=== PATIENT | female | born 1985 | race Caucasian/White ===

== ENCOUNTER → 2019-10-20 14:06 | Outpatient (CLI) | payer SELFPAY ==
[2018-11-22 10:56] VITALS: BMI 32.5
[2019-10-20 15:52] LABS: T3 Uptake 31 % (30-39); T4 Free Direct 0.96 ng/dL (0.76-1.46); T7 / Free Thyroxin Index 2.8 (1.4-4.5); Thyroid Stim Hormone (TSH) 1.18 uIU/mL (0.358-3.74)
[2019-10-22 13:40] LABS: Thyroid Peroxidase AB 122 IU/mL (0-34)
== END ==
PROVIDERS: Family Provider Family Medicine; PCP Family Medicine; Referring Provider Dermatology; Visit Provider Dermatology
DX: L63.8 Other alopecia areata (principal); L21.8 Other seborrheic dermatitis
CPT/HCPCS: 36415; 84436; 84439; 84443; 84479; 86376

== ENCOUNTER → 2019-10-28 14:51 | Outpatient (CLI) | payer SELFPAY ==
[2018-11-22 10:56] VITALS: BMI 32.5
[2019-11-05 09:12] LABS: Anti-Thyroglobulin AB 4.3 IU/mL (0.0-0.9); Thyroglobulin RIA 8.5 ng/mL (.)
== END ==
PROVIDERS: PCP Family Medicine; Referring Provider Family Medicine; Visit Provider Family Medicine
DX: E06.3 Autoimmune thyroiditis (principal)
CPT/HCPCS: 36415; 84432; 86800

== ENCOUNTER → 2019-11-11 13:55 | Outpatient (CLI) | payer SELFPAY ==
[2018-11-22 10:56] VITALS: BMI 32.5
--- NOTE | 2019-11-11 13:59 | US_ITS ---
STUDY: THYROID ULTRASOUND REASON FOR EXAM: Female, 34 years old. THYROMEGALY TECHNIQUE: Ultrasound evaluation of the thyroid was performed with real-time and static bonilla-scale imaging. COMPARISON: None. FINDINGS: RIGHT LOBE: The right lobe of the thyroid gland measures 5.2 x 2.0 x 1.8 cm. There is a homogeneous echotexture. There are no demonstrated solid, cystic or complex lesions. LEFT LOBE: The left lobe of the thyroid gland measures 5.2 x 2.0 x 1.9 cm. There is a homogeneous echotexture. There are no demonstrated solid, cystic or complex lesions. ISTHMUS: The isthmus measures 2.0 mm. US/Thyroid IMPRESSION: Enlarged thyroid gland. Electronically Signed: Tiffanie Erickson MD at 16:39 EST Tel , Service support ,
== END ==
PROVIDERS: PCP Family Medicine; Referring Provider Family Medicine; Visit Provider Family Medicine
DX: E01.0 Iodine-deficiency related diffuse (endemic) goiter (principal)
CPT/HCPCS: 76536

== ENCOUNTER → 2020-02-25 14:26 | Outpatient (CLI) | payer SELFPAY ==
[2018-11-22 10:56] VITALS: BMI 32.5
[2020-02-25 17:54] LABS: T4 Free Direct 0.84 ng/dL (0.76-1.46)
[2020-03-07 00:17] LABS: Thyroglobulin RIA 11 ng/mL (.); Thyroid Peroxidase AB 132 IU/mL (0-34)
== END ==
PROVIDERS: PCP Family Medicine; Referring Provider Family Medicine; Visit Provider Family Medicine
DX: E06.3 Autoimmune thyroiditis (principal)
CPT/HCPCS: 36415; 84432; 84439; 84443; 86376; 86800

== ENCOUNTER → 2020-08-29 14:50 | Outpatient (CLI) | payer SELFPAY ==
[2018-11-22 10:56] VITALS: BMI 32.5
[2020-08-29 18:14] LABS: T4 Free Direct 0.95 ng/dL (0.76-1.46); Thyroid Stim Hormone (TSH) 1.03 uIU/mL (0.358-3.74)
== END ==
PROVIDERS: PCP Family Medicine; Referring Provider Family Medicine; Visit Provider Family Medicine
DX: E06.3 Autoimmune thyroiditis (principal)
CPT/HCPCS: 36415; 84439; 84443

== ENCOUNTER → 2021-07-03 07:01 | Outpatient (CLI) | payer SELFPAY ==
[2021-07-03 10:26] LABS: T4 Free Direct 0.96 ng/dL (0.76-1.46); Thyroid Stim Hormone (TSH) 1.89 uIU/mL (0.358-3.74)
== END ==
PROVIDERS: PCP Family Medicine; Referring Provider Family Medicine; Visit Provider Family Medicine
DX: E06.3 Autoimmune thyroiditis (principal)
CPT/HCPCS: 36415; 84439; 84443

== ENCOUNTER → 2022-03-20 | Outpatient (CLI) | payer SELFPAY ==
[2022-03-25 19:38] LABS: HPV APTIMA, High Risk Negative (Negative)
== END | disposition home or self-care (01) ==
LOC: LABSPEC 16:29
PROVIDERS: PCP Family Medicine; Visit Provider Obstetrics & Gynecology
DX: Z12.4 Encounter for screening for malignant neoplasm of cervix (principal)
CPT/HCPCS: 87624; 88175; G0145

== ENCOUNTER → 2023-11-06 | Outpatient (CLI) | payer SELFPAY ==
--- OUTSIDE RECORDS SUMMARY | 2023-11-06 08:41 | XMS RPT_ITS | CCD ---
Author Name Unknown Address [address] [facility] [address] [place] [id number] Organization [facility] Care Team Providers Care Broach Operator Name Role Phone NEYONIT ROGER, KRISTI Unavailable Unavail able LIA SHEPPARD Unavailable Unavailable YUMIKO, GILBERT L Unavailable Unavailable NEYMARKUST ROGER, KRISTI Unavailable Unavail able YUMIKO, GILBERT L Unavailable Unavailable YUMIKO, GILBERT L Unavailable Unavailable NEYHART DURAN, KRISTI Unavailable Unavail able NEYHART DURAN, KRISTI Unavailable Unavail able Problems Active Problems Problem Classification Problem Date Documented Da te Episodic/Chronic Unclassified (1 source) 39 weeks gestation of ; Translations: [39 weeks gestation of ] Onset: 06-14-2017 Past or Other Problems Problem Classification Problem Date Documented Da te Episodic/Chronic Normal and/or delivery (1 source) Encounter for supervision of other normal , third trimester; Translations: [Encounter for supervision of other normal , third trimester] Onset: 06-14-2017 Episodic Results Test Name Value Interpretation Reference Range Facil ity Encounters Encounter Date Encounter Type Care Provider Facility Start: 08-05-2017 End: 08-06-2017 Ambulatory KRISTI SUZETTE DURAN [facility] Start: 06-21-2017 End: 06-21-2017 Ambulatory KRISTI SUZETTE DURAN [facility] Start: 06-14-2017 End: 06-17-2017 Ambulatory GILBERT CALDERON [facility] Start: 06-05-2017 End: 06-06-2017 Ambulatory GILBERT CALDERON [facility] Start: 05-31-2017 End: 05-31-2017 Ambulatory KRISTIELADIA DURAN [facility] Start: 05-15-2017 End: 05-17-2017 Ambulatory GILBERT CALDERON [facility] Start: 04-30-2017 End: 05-01-2017 Ambulatory LIA SHEPPARD [facility] Start: 04-15-2017 End: 04-15-2017 Ambulatory KRISTIIGOR GONZALEZNTOSH [facility] Summary Purpose Family History No Family History Records Found Advance Directives No Advanced Directives Records Found Additional Source Comments INFORMATION SOURCE (unrecogn ized section and content) FOR RECORDS PERTAINING TO PATIENTS WHO ARE OR HAVE BEEN ENROLLED IN A CHEMICAL DEPENDENCY/SUBSTANCEABUSE PROGRAM, SOME INFORMATION MAY BE OMITTED. This clinical summary was aggregated from multiple sources. Caution should be exercised in using it in the provision of clinical care. This summary normalizes information from multiple sources, and as a consequence, information in this document may materially change the coding, format and clinical context of patient data. In addition, data may be omitted in some cases. CLINICAL DECISIONS SHOULD BE BASED ON THE PRIMARY CLINICAL RECORDS. [employer] [facility]. provides no warranty or guarantee of the accuracy or completeness of information in this document.
[2023-11-06 10:32] LABS: Cholesterol 168 mg/dL (200); Free T3 2.2 pg/mL (2.18-3.98); High Density Lipoprotein 53 mg/dL; Thyroid Stim Hormone (TSH) 2.29 uIU/mL (0.358-3.74); Triglycerides 37 mg/dL; Very Low Density Lipoprotein 7 mg/dL (5-40)
== END | disposition home or self-care (01) ==
PROVIDERS: PCP Family Medicine; Visit Provider Family Medicine
DX: Z00.00 Encounter for general adult medical examination without abnormal findings (principal)
CPT/HCPCS: 36415; 80061; 84443; 84481

== ENCOUNTER 2024-08-18 13:08 | Day surgery (SDC) | payer SELFPAY ==
[2024-08-18] VITALS (7 sets, daily range): BP systolic 100–108; BP diastolic 57–73; PULSE 54–67; RESP 16; TEMP 35.9–36.6; O2SAT 97–100; BMI 33.9
[2024-08-18 13:52] LABS: Absolute Lymphocyte Count 2.73 X10^3/uL (0.83-4.51); Absolute Neutrophil Count 6.7 X10^3/uL (2.0-7.7); Basophil# 0.06 X10^3/uL; Basophil% 0.6 % (0-1); Eosinophils% 1.9 % (0-5); Hematocrit 37.3 % (37-47); Hemoglobin 12.2 g/dL (12.0-15.0); Lymphocyte # 2.73 X10^3/ul (0.83-4.51); Lymphocyte % 25.9 % (19-41); Mean Corp Hgb Conc 32.7 g/dL (32-36); Mean Corpuscular Volume 85.7 fL (81-99); Mean Platelet Vol. 10.8 fl (6.2-12.0); Monocyte# 0.82 X10^3/uL; Monocyte% 7.8 % (0-10); NRBC Flagged by Analyzer 0 % (0-5); Neutrophil # 6.68 X10^3/uL (2.7-7.7); Neutrophil % 63.3 % (47-70); Platelet Count 278 K/mm3 (150-450); RBC Distribution Width SD 43.8 fl (35.1-43.9); Red Blood Count 4.35 M/mm3 (4.2-5.4); White Blood Count 10.5 K/mm3 (4.4-11.0)
[2024-08-18] MEDS: Doxycycline 100 MG CAPSULE PO (14:02)
--- NOTE | 2024-08-18 14:08 | PCM.HP.BLA ---
History and Physical Date of Admission: 08/18/24 Intake Vital Signs 03/20/2214:34 08/14/2409:01 Height 5 ft 4 in 5 ft 4 in Weight: 198 lb 2 oz BMI 34.0 BP 128/73 H Intake Visit Reasons: New OB, LMP 05/15, ETHEL 02/19 Chief Complaint: NOB Patient Carrier Required: No Is patient in pain?: No Allergies meperidine (From Demerol) Adverse Reaction (Verified 08/14/24 08:58) Nausea Medications ?Medication ?Instructions ?Recorded ?Confirmed ?Type docosahexaenoic acid 200 mg mg PO 08/04/24 08/14/24 History capsule ( DHA) Last Menstrual Period: 05/15/24 Zika: Zika virus screening: Negative : Yes PFSH PFSH Medical History Hx of nephrolithotomy with removal of calculi Teagan's disease History of renal calculi Surgical History H/O lithotripsy Family History Mother DiabetesGrandmother Diabetes Heart disease Social History adopted: No household members: spouse and children number of children: 6 service: No current occupation: [employer] current occupational exposures/hazards: No pets and animals: Yes pets and animals: dog(s) and farm animals sexually active: Yes Smoking Status: Never smoker alcohol intake: never substance use type: does not use diet: gluten free well-balanced diet: daily or most days caffeine: No eating out: rarely or never during the past year weight has: increased > 10 lbs what type of physical activity do you participate in: walking frequency: 1-2 times per week duration: < 15 minutes/day ankur/oriental orthodox: Apostolic seatbelt use: always do you feel safe at home: Yes 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 Date Name GA/Weeks Outcome Route Bth Weight Gen Labor Lgth Anesthesia Del Locatn Provider FOB 11/03/09 Sebastián 39 live - full term vacuum 7lbs 3oz Male epidural [facility] dr Staton 12/01/10 Edmundo 38 live - full term 6lbs 8oz Male epidural [facility] dr Staton 02/06/12 Jm 39 live - full term 7lbs 10oz Male other [facility] dr Staton 10/02/13 Ila 38 live - full term 6lbs 6oz Female none [facility] Dr Dov Staton 04/21/15 Blanca 40 live - full term 7lbs 6oz Female none [facility] Dr Osmar Staton 06/22/17 Eron 40 live - full term 7lbs 3oz Male none [facility] Dr Dov Staton Delivery Date: 11/03/09 Last Updated by: Purnima Roe RN Epidural failed, episiotomy with suction Delivery Date: 12/01/10 Last Updated by: Purnima Roe RN Failed epidural Delivery Date: 10/02/13 Last Updated by: Purnima Roe RN Stalled at 7cm, position change and rapid delivery Delivery Date: 04/21/15 Last Updated by: Purnima Roe RN Precipitous delivery - born 10mins after arrival to hospital Delivery Date: 06/22/17 Last Updated by: Purnima Roe RN Stalled labor, position change and rapid delivery HPI New OB, LMP 8, ETHEL 02/19 Details: SHAKA AMEZQUITA is a 38 year old who presents for a D&C for a missed , measuring 12 weeks on ultrasound without heart tones in office on Saturday. OB Visit ETHEL Calculator Estimated Delivery Date Method Current WG Current Estimate 02/19/25 LMP (Certain) 13w 0d Estimated Due Date: 02/19/25 Expected Delivery Route/Plan Labor Preferences- CB/BF classes: [] labor support person: [] labor intervention preferences: [] pain management options preferred: [] cut cord/dad catch: [] : [] PP control planned: [] discussed possible routes of delivery and associated risks: [] special requests: [] Specific Issue/Plans Covid status: [] Flu vaccine: [] Tdap vaccine: [] Rhogam: [] LARC form signed: [] Problem list reviewed and updated with the most current plan of care details and appropriate orders placed. Relevant counseling for the gestational age provided. Continue routine care and follow up unless otherwise noted in visit notes/problem list details Initial Weight: 198 lb Date <del>?</del> EGA Weight BP Urine Prot <del>?</del> Glucose FHR FuHt Pres Dilation <del>?</del> Effaced St Visit Note 08/14/24<del>?</del> 13w 0d 198 lb 2 oz(+2 oz) 128/73 <del>?</del> <del>?</del> KW- No FHT or movement noted at NOB. JV scanned and agreed. measuring 12.5 weeks. JV discussing options for care. Menstrual History Last Menstrual Period: 05/15/24 Reported LMP: definite Normal amount/duration: Yes Frequency in days: 28 On hormonal BC at conception: No hCG+: 06/20/24 Antepartum Record Genetic Screening: Congenital Heart Defect: Other, Neural Tube Defect: Other, Hemoglobinopathy Or Carrier: Other, Cystic Fibrosis: Other, Chromosome Abnormality: Other, Cricket-Sachs: Other, Hemophilia: Other, Intellectual Disability/Autism: Other, Recurrent Loss/Stillbirth: Other, Other Structural Defect: Other, Other Genetic Disease: Other and Maternal Metabolic Disorder: Other Infection History: Live with someone with TB or Exposed to TB: No, Patient or Partner has history of Genital Herpes: No, Rash or Viral illness since last mentrual period: No, Prior GBS-Infected child: Yes (First ), History of STD: No, HIV Infection: No, History of Hepatitis: No, Recent travel outside of [place]: No, Concern for hepatitis exposure: No, Varicella immune: Yes (Had chicken pox) and Covid Vaccinated: No Medical History Medical History: Positive: Auto-immune disorder (Teagan's Disease), Kidney disease/UTI (Lithotripsy 2015), Thyroid dysfunction, D (Rh) Sensitized (AB-), Operations/hospitalizations (Hospitalized prior to lithotripsy - infection ) and Anesthetic complications (Multiple failed epidurals) and Negative: Diabetes, Hypertension, Heart disease, Neurologic/epilepsy, Psychiatric, Depression/ depression, Hepatitis/liver disease, Varicosities/phlebitis, Trauma/domestic violence, History of blood transfusions, Pulmonary (e.g.,TB,Asthma), Seasonal allergies, Drug/latex allergies/reactions, Breast, Industrial Safety And Health Technician surgery, History of abnormal pap, Uterine anomaly/amie, Infertility, Anti-retroviral treatment, Relevant family history and Other ACOG First Trimester First Trimester: Second Trimester Second Trimester: Signs and Symptoms of Labor, Selecting a care provider, Reproductive Life Planning & Contreception, Care Planning, Depression/Anxiety and Intimate Partner Violence; Discussed Tobacco Cessation Third Trimester Third Trimester: Pain Management Plans, Labor support person(s), Immediate Larc, Signs and Symptoms of Preeclampsia, Infant Feeding Yes , Education and Family Medical Leave or Disability Forms ROS Const Reports system reviewed and no additional complaints, except as documented, Denies fatigue, Denies headache(s) and Denies lethargy ENT Denies headache(s) Card Reports system reviewed and no additional complaints, except as documented Resp Reports system reviewed and no additional complaints, except as documented GI Reports system reviewed and no additional complaints, except as documented, Denies abdominal pain, Denies constipation, Denies cramping, Denies diarrhea and Denies dyspepsia Reports system reviewed and no additional complaints, except as documented, Denies abnormal vaginal bleeding, Denies difficulty voiding, Denies dyspareunia and Denies dysuria Musc Reports system reviewed and no additional complaints, except as documented Skin/Breast Reports system reviewed and no additional complaints, except as documented Neuro Yes system reviewed and no additional complaints, except as documented and No headache(s) Psych Reports system reviewed and no additional complaints, except as documented, Denies anhedonia and Denies anxiety Endo Reports system reviewed and no additional complaints, except as documented and Denies fatigue Exam Const General: cooperative, healthy appearing and comfortable Neck Neck: normal visual inspection and full ROM Chest Chest palpation & inspection: normal inspection of the chest Breast inspection: normal inspection of the breasts and normal inspection of the axillae Breast palpation: normal palpation of the breasts and normal palpation of the axillae Resp Effort & Inspection: normal respiratory effort and able to speak in complete sentences GI Inspection: normal to inspection Palpation: soft External Female Exam: normal external appearance and normal appearance of the urethra Urethra: normal appearance of the urethra Skin General: no rashes or lesions noted Neuro General: patient alert, patient awake and patient oriented x3 Extrem General: normal to inspection and full ROM Psych Appearance: grossly normal and well kempt Mental Status: mental status grossly normal Mood: congruent mood Affect: normal affect Speech and Movement: speech and movement normal Thought Process: normal Thought Content: normal Coding Level of Care Code Off vis,est,level 4 Diagnoses Miscarriage O03.9 Assessment and Plan Assessment and Plan (1) Miscarriage: Status: Acute Comment: After discussing the patient's diagnosis and treatment plan options, patient wishes to proceed with surgical management. I have discussed with the patient the risks, benefits, and alternatives of the procedure which include but are not limited to risks of anesthesia, bleeding, infection, possible damage to bowel, bladder, or surrounding vasculature which could lead to additional surgery to evaluate any complications. Patient agrees to procedure and wishes to proceed. ACOG/uptodate references given for additional information regarding procedure. plan for suction D&C under ultrasound guidance.
--- NOTE | 2024-08-18 14:22 | PRE.ANES_ITS ---
ASA Classification* ASA Classification ASA Classification: 2 Assessment & Plan Anesthesia* Anesthesia Assessment Anesthesia Assessment: Discussed sedation and/or anesthesia options, risks, benefits, and alternatives with patient/parents/legal guardian/POA. Questions invited. The patient/parents/legal guardian/POA seems to understand and agrees to proceed with anesthesia plan. Reviewed the physical assessment, medical history, allergy history and patient home medications list prior to surgery/procedure/anesthetic and documented any changes. Performed airway and anesthesia risk assessments. Anesthesia Type Anesthesia Type: MAC History Source History Obtained from:: Patient and Chart Anesthesia Focused Assessment* Temperature: 97.7 F Pulse Rate: 58 Blood Pressure: 102/62 Respiratory Rate: 16 Pulse Ox: 100 Oxygen Delivery Method: Room Air Airway Assessment Mouth opens: 2 cm Mallampati Score: IV Teeth Condition: Intact Neck Range of motion (ROM): Full ROM Focused Labs Anesthesia Preop lab: CBC WBC 10.5 K/mm3 (4.4-11.0) 08/18/24 13:43 RBC 4.35 M/mm3 (4.2-5.4) 08/18/24 13:43 Hgb 12.2 g/dL (12.0-15.0) 08/18/24 13:43 Hct 37.3 % (37-47) 08/18/24 13:43 Plt Count 278 K/mm3 (150-450) 08/18/24 13:43 CHEMISTRY Potassium 3.8 mmol/L (3.5-5.1) 08/15/16 15:09 Sodium 138 mmol/L (136-145) 08/15/16 15:09 BUN 19 mg/dL (7-18) H 08/15/16 15:09 Creatinine 1.00 mg/dL (0.55-1.02) 08/15/16 15:09 Glucose 81 mg/dL (70-110) 08/15/16 15:09 TSH 2.29 uIU/mL (0.358-3.74) 11/06/23 08:33 COAG Urine Test Negative Negative 07/13/16 06:05 Pre-Assessment Diagnosis/Proposed Procedure Planned Operative Procedure(s): SUCTION DILATION AND CURRETTAGE Anesthesia History Anesthesia History - hand spray operator: Anesthesia History - hand spray operator Hx Hospitalization No 08/17/24 14:34 Any Problems With Anesthesia No 08/17/24 14:34 Cholinesterase deficiency No 08/17/24 14:34 You/Your Family Experience No 08/17/24 14:34 fever (hyperthermia) with Relationship Recent Exposure to Contagious No 08/18/24 13:44 Disease Does patient have nerve No 08/17/24 14:34 stimulator Patient instructed to have device shut off --Does patient have Pacemaker No 08/18/24 13:44 or ICD? When Was Last Pacemaker Check QUESTION #4 FULL TEXT: You/Your Family Experience fever (hyperthermia) with Anesthesia Last Oral Intake Last Oral intake: Last Oral Intake NPO since 10:45 08/18/24 13:44 Meds taken in AM with sips of No 08/18/24 13:44 water? Meds patient instructed to take am of surgery Any additional information?: Yes NPO since: 10:55 (Patient had water at 10:55 AM.) PONV PONV - hand spray operator: PONV - hand spray operator Female Yes 08/17/24 14:34 HX of Motion Sickness No 08/17/24 14:34 HX of N/V After Surgery No 08/17/24 14:34 Non-Smoker Yes 08/17/24 14:34 Duration of Surgery greater No 08/17/24 14:34 than 60 minutes Number of Risk Factors 2 08/17/24 14:34 PONV Score Moderate Risk 08/17/24 14:34 Height & Weight Height & Weight: Anesthesia: Height & Weight Height 5 ft 4 in 08/18/24 13:44 Weight: 89.7 kg 08/18/24 13:44 Body Mass Index (BMI) 33.9 08/18/24 13:44 Respiratory Assessment Respiratory Assessment - hand spray operator: Respiratory Tract Infection Hx - hand spray operator Hx Respiratory Tract Infection No 08/17/24 14:34 STOP Sleep Apnea STOP Sleep Apnea - hand spray operator: STOP Sleep Apnea - hand spray operator Hx Hypertension No 08/17/24 14:34 Hx Sleep Apnea No 08/17/24 14:34 CPAP No 07/13/16 08:30 BIPAP Do you snore loudly (louder No 08/17/24 14:34 than talking or can be heard Do you often feel tired/ No 08/17/24 14:34 fatigued/ sleepy during daytime? Has anyone observed you stop No 08/17/24 14:34 breathing during sleep? STOP Results Negative 08/17/24 14:34 QUESTION #5 FULL TEXT : Do you snore loudly (louder than talking or can be heard through closed doors)? Tobacco Use History Tobacco Use History - hand spray operator: Tobacco Use History - hand spray operator Tobacco Use Smoking Status Never smoker 08/17/24 14:34 Hx Tobacco Use No 08/17/24 14:34 Years Smoking Packs Smoked per Day Smoking Cessation Date was within the last 15 years Hx Smoking Cessation Date Hx Smoking Cessation Counseling Hematologic Medial History Hematologic Hx - hand spray operator: Hematologic Medical Hx - radiology ct technologist Hx of Blood Transfusion No 08/17/24 14:34 Hx of Transfusion in last 3 No 08/17/24 14:34 Months Date of Last Transfusion (if within last 3 months) Ever experience any problems No 08/17/24 14:34 with transfusion(s)? Specify any problems Hx of Preganancy in last 3 No 08/17/24 14:34 Months Nurse Filling Out Transfusion [id number] 08/17/24 14:34 & Questions: Date: 08/17/24 08/17/24 14:34 Time: 14:37 08/17/24 14:34 Patient unable to answer at this time (ie. confused, unrespo /Reproduction History /Reproductive History - hand spray operator: /Reproductive Hx- hand spray operator Hx Now Gestational Age (in weeks): EDC: Hx Hx Para Hx Section SAB Yes 08/14/24 09:10 Active Medications Active Medications: Current Medications Generic Name Dose Route Start Last Admin Trade Name Diana PRN Reason Stop Dose Admin Doxycycline Monohydrate 100 mg 08/18/24 14:50 08/18/24 14:02 Doxycycline 100 Mg Capsule PO 08/18/24 14:51 100 mg PREOP ONE Administration PFSH Medical History Dietary restriction Wears contact lenses Non-smoker Hx of nephrolithotomy with removal of calculi Teagan's disease History of renal calculi Home Medications ?Medication ?Instructions ?Recorded ?Last Taken ?Type docosahexaenoic acid 200 mg 200 mg PO DAILY 08/04/24 Unknown History capsule ( DHA) Allergy/AdvReac Type Severity Reaction Status Date / Time meperidine (From Demerol) AdvReac Nausea Verified 08/18/24 13:41 Family History Mother Diabetes Grandmother Diabetes Heart disease Surgical History H/O lithotripsy Social History adopted: No household members: spouse and children number of children: 6 current occupation: [employer] current occupational exposures/hazards: No pets and animals: Yes pets and animals: dog(s) and farm animals sexually active: Yes Smoking Status: Never smoker alcohol intake: never substance use type: does not use diet: gluten free well-balanced diet: daily or most days caffeine: No eating out: rarely or never during the past year weight has: increased > 10 lbs what type of physical activity do you participate in: walking frequency: 1-2 times per week duration: < 15 minutes/day ankur/amish: Apostolic seatbelt use: always do you feel safe at home: Yes 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
--- NOTE | 2024-08-18 14:25 | PCM.DC ---
Discharge Instructions Diet Discharge Diet: No restrictions Activity Discharge Activity: Return to Normal Activity, May Shower and May Take a Tub Bath (after 1 week) May resume sexual activity in: 1-2 weeks Weight Bearing Status: Weight bearing as tolerated Lifting Restrictions: none Dressing / Incision Call your doctor if you observe: Fever of 101 or Higher, Using more than 1 pad per hour, Shortness of breath and Uncontrolled pain Follow Up Care Please Follow Up With: Mamie Augustin DO When: Call [phone] to schedule appointment. Test Results: Test results from this visit will be discussed in further detail at your follow-up appointment, if applicable. Discharge Plan Admission Attending Provider: Mamie Augustin Primary Care Provider: Masood Crenshaw Instructions Print Language: Citizen Of [place] Discharge Orders/Prescriptions Prescriptions: No Action DHA 200 mg capsule 200 mg PO DAILY Referrals / Follow Up: Masood Crenshaw MD [Primary Care Provider] - Disposition Disposition (needs filled in before D/C Order can be placed): Home, Self Care
--- NOTE | 2024-08-18 14:50 | POC_PTH ---
PATIENT: SHAKA AMEZQUITA LOC: [facility] U#:[id number] AGE/SX: 38/F ROOM: RE08/18/[address]: Dr. Mamie Augustin DO : 1985 BED: DIS: 08/18/2024 SPEC #: [id number] RECD: 08/18/24 15:18 STATUS: JUS HOLCOMB #: [id number] SERENITY: 08/18/24 14:[address]: Mamie Augustin DEPT: SURGICAL PATHOLOGY RECD BY: Yari Loaiza ENTERED: 08/19/24 07:49 SP TYPE: PROD CONC OTHR DR: Dr. Masood Crenshaw MD Tissues: Product of conception, NOS Procedures: Surgery Specimen Level IV HEADER OPERATION: Dilation and curettage, suction PRE-OP DIAGNOSIS: Miscarriage TISSUE SUBMITTED: Products of conception MICROSCOPIC DIAGNOSIS Products of conception, dilation and curettage: Immature placental tissue and tissue (products of conception), clinically miscarriage. SJ: 08/20/2024 MICROSCOPIC DESCRIPTION Slides are reviewed. GROSS DESCRIPTION Received in fixative is one container labeled with the patient's name and designated Products of conception. The specimen consists of multiple fragments of hemorrhagic soft tissue mixed with blood clot, placental tissue and tissue that in aggregate measure 9.0 x 7.5 x 3.0 cm. Furnace Room Supervisor sections are submitted in three cassettes. Cassette 3 contains the tissue. ANOOP. 08/19/2024 TC: 5 CPT:64647
[2024-08-18] MEDS: Methylergonovine 0.2 MG/ML Ampul IM (15:07)
--- NOTE | 2024-08-18 15:08 | OP.PCM_ITS ---
Problems Associated Problem List Diagnoses (1) Missed : Operative Report (Standard) Operative Information Surgery/Procedure Performed: suction dilation and curettage Surgeon: Mamie Augustin Date of Procedure: 08/18/24 Procedure Start Time: 14:45 Procedure Stop Time: 15:05 Pre-Operative Diagnosis: missed , 12 weeks Post-Operative Diagnosis: missed , 12 weeks Select all DRAINS/GRAFTS/IMPLANTS that apply: None Type of Anesthesia: MAC Special Medications: 0.20mg Methergine IM Estimated Blood Loss: 200cc Specimen collected: Yes Description of specimen(s) removed: products of conc eption Description of surgery: Patient was taken to the operating room and placed under MAC local anesthesia. She was prepped and draped in the normal sterile fashion the dorsal lithotomy position. Bladder was drained of clear urine and anterior lip of the cervix was grasped and the uterus sounded to 14cm. Cervix was progressively dilated to allow passage of a size 10 suction curette. Progressive passes were made removing the retained products of conception without complication. Sharp curettage confirmed complete removal of the retained products. The entire procedure was performed under ultrasound guidance until a thin endometrium was noted. All instruments were removed from the vagina and excellent hemostasis was noted and the patient was taken to recovery in stable condition. Surgical Findings: 12 weeks missed , normal uterus and cervix. Massage Therapy Instructor retort unloader: Yes Staff Readiness Officer: Blane Ross Tasks completed by psychology assistant: Other (assist with ultrasound ) Additional health care legal assistant?: No Complications Complications: No Admit VTE Documentation VTE Present on Admission: No VTE Mechan Device Prophylaxis: SCD's VTE Pharm Prophylaxis ordered?: No Multi Select Codes Urinary/Genital Urinary/Genital CPT Codes: 40649 Surg Trtmt missed Ab 1TM
--- NOTE | 2024-08-18 15:16 | PCM.POST.ANE ---
Anesthesia: Postop Eval I Current Vital Signs Temperature: 97 F Pulse Rate: 54 Blood Pressure: 108/64 Respiratory Rate: 16 Pulse Ox: 97 Oxygen Delivery Method: Room Air Assessment Airway patent: Yes Spontaneous unlabored respirations: Yes Mental status: Awake and Calm nausea: No Vomiting: No Anesthesia Complication: No Fluid Hydration Crystalloid volume administer (ml): 10 Total IV fluid infused: 10 Progress Note Anesthesia document: Postop Eval 1 completed: Yes
--- NOTE | 2024-08-18 16:30 | PCM.POSTANE2 ---
Anesthesia Postop Eval I Sum Postop Eval Completion status Anesthesia document: Postop Eval 1 completed: Yes Anesthesia Postop Eval I Summary Anesthesia Postop Eval I Summary: Anesthesia Postop Eval I: Assessment Summary Airway patent Yes 08/18/24 15:17 INSTRUCTIONAL TECHNOLOGY COORDINATOR.SKOBY Spontaneous unlabored Yes 08/18/24 15:17 INSTRUCTIONAL TECHNOLOGY COORDINATOR.DANIS respirations Mental status Awake,Calm 08/18/24 15:17 INSTRUCTIONAL TECHNOLOGY COORDINATOR.SKOBY nausea No 08/18/24 15:17 INSTRUCTIONAL TECHNOLOGY COORDINATOR.RAJOBY Vomiting No 08/18/24 15:17 INSTRUCTIONAL TECHNOLOGY COORDINATOR.RAJOBAndry Anesthesia Postop Eval I: Fluid Summary Crystalloid volume administer 10 08/18/24 15:17 INSTRUCTIONAL TECHNOLOGY COORDINATOR.SKOBY (ml) Colloids volume administered ( ml) Blood Product volume administered (ml) Total IV fluid infused 10 08/18/24 15:17 INSTRUCTIONAL TECHNOLOGY COORDINATOR.RAJOBAndry Anesthesia Postop Eval I: Summary Notes Anesthesia Complication No 08/18/24 15:17 INSTRUCTIONAL TECHNOLOGY COORDINATOR.RAJOBAndry Anesthesia Complication Comment: Post-operative progress note Anesthesia: Postop Eval II Evaluation Mental status: Awake and Calm Pain Level: 1 nausea: No Vomiting: No Complications Anesthesia Complication: No
--- NOTE | 2024-08-18 16:30 | POSTOPAN2_ITS ---
Anesthesia Postop Eval I Sum Postop Eval Completion status Anesthesia document: Postop Eval 1 completed: Yes Anesthesia Postop Eval I Summary Anesthesia Postop Eval I Summary: Anesthesia Postop Eval I: Assessment Summary Airway patent Yes 08/18/24 15:17 TYPING BOOKKEEPER.SKOBY Spontaneous unlabored Yes 08/18/24 15:17 TYPING BOOKKEEPER.DANIS respirations Mental status Awake,Calm 08/18/24 15:17 TYPING BOOKKEEPER.SKOBY nausea No 08/18/24 15:17 TYPING BOOKKEEPER.RAJOBY Vomiting No 08/18/24 15:17 TYPING BOOKKEEPER.RAJOBAndry Anesthesia Postop Eval I: Fluid Summary Crystalloid volume administer 10 08/18/24 15:17 TYPING BOOKKEEPER.SKOBY (ml) Colloids volume administered ( ml) Blood Product volume administered (ml) Total IV fluid infused 10 08/18/24 15:17 TYPING BOOKKEEPER.RAJOBAndry Anesthesia Postop Eval I: Summary Notes Anesthesia Complication No 08/18/24 15:17 TYPING BOOKKEEPER.RAJOBAndry Anesthesia Complication Comment: Post-operative progress note Anesthesia: Postop Eval II Evaluation Mental status: Awake and Calm Pain Level: 1 nausea: No Vomiting: No Complications Anesthesia Complication: No
== END 2024-08-18 16:30 | disposition home or self-care (01) ==
LOC: SDC 13:13 → AC 13:14
PROVIDERS: PCP Family Medicine; Referring Provider Obstetrics & Gynecology; Visit Provider Obstetrics & Gynecology
PROC: (CPT 59820; principal; 2024-08-18 14:35)
DX: O03.4 Incomplete spontaneous abortion without complication (principal); O99.281 Endocrine, nutritional and metabolic diseases complicating pregnancy, first trimester; E06.3 Autoimmune thyroiditis
CPT/HCPCS: 59820; 01965; 84443; 85025; 86850; 86900; 86901; 88305; A4216; J2405

== ENCOUNTER → 2025-08-10 | Outpatient (CLI) | payer SELFPAY ==
[2025-08-10 12:21] LABS: Hematocrit 40.4 % (37-47); Hemoglobin 13.5 g/dL (12.0-15.0); Immature Granulocytes Count 0.070 X10^3/uL (0.0-0.0); Mean Corp Hgb Conc 33.4 g/dL (32-36); Mean Corpuscular Volume 85.8 fL (81-99); Mean Platelet Vol. 10.7 fl (6.2-12.0); NRBC Flagged by Analyzer 0 % (0-5); Platelet Count 306 K/mm3 (150-450); RBC Distribution Width CV 13.2 % (11.6-14.6); RBC Distribution Width SD 41.6 fl (35.1-43.9); Red Blood Count 4.71 M/mm3 (4.2-5.4); White Blood Count 9.1 K/mm3 (4.4-11.0)
[2025-08-10 13:08] LABS: AST(SGOT) 19 U/L (<=31); Alanine Aminotransfer ALT/SGPT 17 U/L (<=34); Albumin, Serum 4.0 g/dL (3.5-5.0); Alkaline Phosphatase 64 U/L (35-104); Anion Gap 10 (5-15); BUN 15 mg/dL (4-19); BUN/Creat Ratio 21.6 RATIO (10-20); Calcium,Total 8.9 mg/dL (7.6-11.0); Carbon Dioxide 20.4 mmol/L (21.0-32.0); Chloride 105 mmol/L (98-108); Cholesterol 180 mg/dL (<=200); Free T3 2.8 pg/mL (2.18-3.98); Globulin 3.5 g/dL (2.2-4.2); Glucose 91 mg/dL (70-99); Low Density Lipoprotein Calc. 120 mg/dL; Potassium 4.2 mmol/L (3.3-5.1); Triglycerides 74 mg/dL; Very Low Density Lipoprotein 15 mg/dL (5-40); cholesterol:hdl ratio screen 3.93
[2025-08-12 07:07] LABS: Thyroid Stim Immunoglob <0.10 IU/L (0.00-0.55)
== END | disposition home or self-care (01) ==
LOC: VSLAB 10:25
PROVIDERS: PCP Family Medicine; Referring Provider Family Medicine; Visit Provider Family Medicine
DX: Z00.00 Encounter for general adult medical examination without abnormal findings (principal)
CPT/HCPCS: 36415; 80053; 80061; 84439; 84443; 84445; 84481; 85025; 86376; 86800